=== PATIENT | female | born 1955 | race American Indian/Alaskan Native ===

== ENCOUNTER 2017-05-03 20:26 | Emergency (ER) | payer OTHER ==
[2017-05-04] MEDS ORDERED: NORCO 5/325 PO ONE (00:54)
--- NOTE | 2017-05-04 00:55 | Emergency Department Report ---
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 denies: numbness , tingling - Related Data Previous Rx's Medication Instructions Recorded Last Taken Type Acetaminophen [Acetaminophen TAB] 1,000 mg PO Q6HR PRN #60 tablet 05/04/17 Unknown Rx Cyclobenzaprine [Flexeril] 10 mg PO TID PRN #30 tablet 05/04/17 Unknown Rx traMADol [Ultram 50 MG tab] 50 mg PO Q8HR PRN #15 tablet 05/04/17 Unknown Rx Allergies Allergy/AdvReac Type Severity Reaction Status Date / Time No Known Allergies Allergy Verified 05/03/17 21:30 ED Review of Systems ROS: Stated complaint: RT KNEE PAIN Other details as noted in HPI Constitutional: denies: chills, fever Eyes: denies: eye pain, eye discharge, vision change ENT: denies: ear pain, throat pain Respiratory: denies: cough, shortness of breath, wheezing Cardiovascular: denies: chest pain, palpitations Endocrine: no symptoms reported Gastrointestinal: denies: abdominal pain, nausea, diarrhea Genitourinary: denies: urgency, dysuria, discharge Musculoskeletal: joint swelling (right anterior knee ), arthralgia, myalgia Skin: denies: rash, lesions Neurological: abnormal gait. denies: headache, weakness, numbness, paresthesias , confusion, vertigo Psychiatric: denies: anxiety, depression Hematological/Lymphatic: denies: easy bleeding, easy bruising ED Past Medical Hx - Past Medical History Previous Medical History?: No - Surgical History Past Surgical History?: Yes Additional Surgical History: HYSTERECTOMY - Social History Smoking Status: Never Smoker Substance Use Type: None - Medications Home Medications: Home Medications Medication Instructions Recorded Confirmed Last Taken Type Acetaminophen [Acetaminophen TAB] 1,000 mg PO Q6HR PRN #60 tablet 05/04/17 Unknown Rx Cyclobenzaprine [Flexeril] 10 mg PO TID PRN #30 tablet 05/04/17 Unknown Rx traMADol [Ultram 50 MG tab] 50 mg PO Q8HR PRN #15 tablet 05/04/17 Unknown Rx ED Physical Exam - General Limitations: No Limitations General appearance: alert, in no apparent distress - Head Head exam: Present: atraumatic, normocephalic - Eye Eye exam: Present: normal appearance - ENT ENT exam: Present: mucous membranes moist - Neck Neck exam: Present: normal inspection, full ROM. Absent: tenderness, lymphadenopathy, thyromegaly - Respiratory Respiratory exam: Present: normal lung sounds bilaterally. Absent: respiratory distress, wheezes, rhonchi, stridor, chest wall tenderness - Cardiovascular Cardiovascular Exam: Present: regular rate, normal rhythm. Absent: systolic murmur, diastolic murmur, rubs, gallop - GI/Abdominal GI/Abdominal exam: Present: soft, normal bowel sounds - Rectal Rectal exam: Present: deferred - Extremities Exam Extremities exam: Present: tenderness, normal capillary refill, joint swelling. Absent: calf tenderness - Expanded Lower Extremity Exam Right Hip exam: Present: full ROM Upper Leg exam: Present: normal inspection, full ROM Knee exam: Present: tenderness, swelling, abrasion, ecchymosis, dislocation, effusion, pain w/ pronation/supination, full knee extension. Absent: laceration , deformity, crepidus, erythema, posterior draw sign, pain/laxity with valgus, pain/laxity with varus Lower Leg exam: Present: normal inspection, full ROM Ankle exam: Present: normal inspection, full ROM Foot/Toe exam: Present: normal inspection, tenderness Neuro vascular tendon exam: Present: no vascular compromise. Absent: pulse deficit, abnormal cap refill, motor deficit, sensory deficit, tendon deficit, extremity cold to touch, pallor, abnormal 2-point discrimination, decreased fine /light touch, foot drop, peroneal nerve deficit, significant pain with passive ROM of distal joint Gait: Positive: observed and limited by pain - Back Exam Back exam: Present: normal inspection, full ROM, tenderness. Absent: CVA tenderness (R), CVA tenderness (L), muscle spasm, paraspinal tenderness, vertebral tenderness, rash noted - Neurological Exam Neurological exam: Present: alert, oriented X3, CN II-XII intact, reflexes normal - Psychiatric Psychiatric exam: Present: normal affect, normal mood - Skin Skin exam: Present: warm, dry, intact, normal color. Absent: rash ED Course Vital Signs 05/03/17 21:30 Temperature 98.6 F Pulse Rate 81 Respiratory 20 Rate Blood Pressure 158/83 O2 Sat by Pulse 98 Oximetry ED Lower Extremity MDM - Radiology Data Radiology results: image reviewed no fracture small effusion, no soft tissue abnomality - Medical Decision Making pt is a 61 y/o aaf s/p fall in furniture store 10 hrs ago as "I tripped and landing on my knee pt was immediaely ambulatory however started having pain and aching upon arrival to home pain now 3/10 aching exacerbated by attempt ambulation, pain is relieved by resting, exam: noted ecchymosis, erythema, and small anterior effusion there is no drawer pt has full extension of knee pain with flexion , no calf tenderness pt endores pain to attempted weight bearing, xray no fracture plan: tramadol, flexeril prn pain , rice, elevation knee immobilized follow up with Dr Thompson for evaluation upon appointment pt verbalized agreement nad understanding of same, pt for crutch and immobilizer teaching at this time. pt verbalized understanding and agreement with discharge plan. , Critical care attestation.: If time is entered above; I have spent that time in minutes in the direct care of this critically ill patient, excluding procedure time. ED Disposition Clinical Impression: Contusion of knee, right Knee sprain Qualifiers: Encounter type: initial encounter Involved ligament of knee: unspecified ligament Laterality: right Qualified Code(s): S83.91XA - Sprain of unspecified site of right knee, initial encounter Disposition: DC- TO HOME OR SELFCARE Is pt being admited?: No Does the pt Need Aspirin: No Condition: Good Instructions: Knee Sprain (ED) Additional Instructions: follow up with Dr. Thompson as directed [phone] Prescriptions: Acetaminophen [Acetaminophen TAB] 1,000 mg PO Q6HR PRN #60 tablet PRN Reason: Pain Cyclobenzaprine [Flexeril] 10 mg PO TID PRN #30 tablet PRN Reason: Muscle Spasm traMADol [Ultram 50 MG tab] 50 mg PO Q8HR PRN #15 tablet PRN Reason: Pain , Severe (7-10) Referrals: PRIMARY CARE, [Primary Care Provider] - 3-5 Days Time of Disposition: 01:13
[2017-05-04 02:28] VITALS: BP 120/75
--- NOTE | 2017-05-04 09:55 | XRay Report ---
XRAY RIGHT KNEE 2 VIEWS: 05/03/17 20:26:00 CLINICAL: Fall with bruising, pain and swelling FINDINGS: No fracture or dislocation. The joint spaces are normal. Small patellofemoral osteophytes. Prepatellar soft tissue edema. No joint effusion. IMPRESSION: Soft tissue injury and mild patellofemoral joint arthritis.
== END 2017-05-04 02:28 | disposition home or self-care (01) ==
LOC: ED 20:26
DX: S80.01XA Contusion of right knee, initial encounter (principal); S76.911A Strain of unspecified muscles, fascia and tendons at thigh level, right thigh, initial encounter; W18.30XA Fall on same level, unspecified, initial encounter; Y93.89 Activity, other specified; Y92.89 Other specified places as the place of occurrence of the external cause; Y99.8 Other external cause status
CPT/HCPCS: 99283